=== PATIENT | male | born 1955 | race African-American/Black ===

== ENCOUNTER 2019-01-13 23:32 | Inpatient (IN) | payer BC, SELFPAY ==
[~2019-01-13 23:32] MED LIST: ISOVUE-370 76%-LOCM 1 ML ONE
[2019-01-13] MEDS ORDERED: Ondansetron PF 4 MG/2 ML Vial ONE (23:38)
[2019-01-13] MEDS ORDERED: Fentanyl 100 MCG/2 ML VIAL ONE (23:38)
[2019-01-13] MEDS ORDERED: Tranexamic Acid 1,000 MG/10 ML VIAL ONE (23:42)
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
[2019-01-14] LABS: Hemoglobin 11.9 g/dL (14.0-18.0); Mean Corpuscular HGB CONC 32.2 g/dL (32.0-36.0); Mean Corpuscular Hemoglobin 30.1 pg (27.0-31.0); Mean Corpuscular Volume 93.6 fL (78.0-98.0); Mean Platelet Volume 7.9 fL (7.4-10.4); Platelet Count 287 thou/uL (130-400); RBC Distribution Width 12.8 % (11.5-14.5); Red Blood Cell (RBC) Count 3.97 mill/uL (4.70-6.10); White Blood Cell (WBC) Count 8.6 thou/uL (4.8-10.8)
[2019-01-14 00:06] LABS: Prothrombin Time 13.6 SEC (12.0-14.7)
[2019-01-14] MEDS ORDERED: Promethazine HCl 25 MG/ML VIAL ONE (00:10)
[2019-01-14 00:11] LABS: PTT 19.5 SEC (22.9-36.1)
[2019-01-14] MEDS ORDERED: Succinylcholine Chloride 20 MG/ML 10 ml SYRINGE FS ONE (00:12)
[2019-01-14] MEDS ORDERED: Rocuronium Bromide 10 MG/ML (10ML VIAL) ONE ×2 (00:12→02:51)
[2019-01-14 00:13] LABS: ALT (SGPT) 16 U/L (8-55); AST (SGOT) 23 U/L (5-34); Albumin 3.7 g/dL (3.4-4.8); Alkaline Phosphatase 68 U/L (40-150); Anion Gap 18 mmol/L (10-20); BUN (Urea Nitrogen) 19 mg/dL (8.4-25.7); Bilirubin, Total 0.2 mg/dL (0.2-1.2); Calc. Creatinine Clearance 0 mL/min (70-130); Calcium 8.6 mg/dL (7.8-10.44); Carbon Dioxide 21 mmol/L (23-31); Chloride 105 mmol/L (98-107); Estimated GFR-MDRD 44; Globulin 2.9 g/dL (2.4-3.5); Glucose 134 mg/dL (80-115); Potassium 3.4 mmol/L (3.5-5.1); Protein, Total 6.6 g/dL (5.8-8.1); Sodium 141 mmol/L (136-145)
[2019-01-14 00:14] LABS: Lymphocytes 47 % (21-51); MDiff Complete? YES; Monocytes 5 % (0-10); Neutrophil 45 % (42-75); Reactive Lymphocytes 3 % (0-10)
[2019-01-14] MEDS ORDERED: fentaNYL Citrate/PF 2,000 MCG in Sodium Chloride 0.9% 60 ML IV SCH ×2 (00:14→01:31)
[2019-01-14] MEDS ORDERED: KETAMINE 100 MG/ML (5ML VIAL) ONE (00:15)
[2019-01-14] MEDS ORDERED: Lidocaine 1% w/Epinephrine 1:100K 20 ML VIAL ONE (00:18)
[2019-01-14] MEDS ORDERED: Adacel (T-DAP) 0.5 ML SYRINGE ONE (00:30)
[2019-01-14] MEDS ORDERED: Propofol 1,000 MG/100 ML VIAL IV ONE (00:37)
[2019-01-14 01:14] LABS: Actual Bicarbonate (HCO3a) 21.1 mEq/L (22-28); Analyzer IN Cardio ER; CO2 Tension 34.5 mmHg (35.0-45.0); Calcium, Ionized 1.06 mmol/L (1.12-1.30); Carboxyhemoglobin (COHb) 0.6 gm% (0.0-3.0); Hemoglobin (Hb) 11.8 g/dL (14.0-18.0); O2 Tension (PaO2) 74.3 mmHg (> 80.0)
[2019-01-14 01:18] LABS: ALV-art Gradient 167.775 (0-20); Puncture Site LBA
[2019-01-14 01:19] LABS: Acetaminophen Less than 6.0 mcg/mL (10.0-30.0); Alcohol 176 mg/dL (Less than 10); Salicylate Less than 8.0 mg/dL (15.0-30.0)
[2019-01-14 01:29] LABS: Bilirubin Negative (Negative); Blood, Urine Negative (Negative); Clarity CLEAR (Clear); Glucose, Urine (Dipstick) Negative (Negative); Leukocyte Negative (Negative); Nitrite Negative (Negative); Protein, Urine (Dipstick) Trace mg/dL (Neg-Trace); Urobilinogen 0.2 mg/dL (0.2-1.0)
[2019-01-14] MEDS ORDERED: Propofol 1,000 MG/100 ML VIAL IV PRN ×2 (01:31→03:56)
[2019-01-14] MEDS ORDERED: Propofol BOLUS 1,000 MG/100 ML VIAL IV PRN ×2 (01:31→03:56)
[2019-01-14] MEDS ORDERED: Morphine 2 MG/ML SYRINGE SLOW IVP PRN ×2 (01:31→15:34)
[2019-01-14] MEDS ORDERED: Lorazepam 2 MG/ML VIAL SLOW IVP PRN (01:31)
[2019-01-14] MEDS ORDERED: Fentanyl BOLUS 250 ML IVPB PRN (01:31)
[2019-01-14] MEDS ORDERED: Fentanyl CADD 250 ML IVPB SCH (01:31)
[2019-01-14] MEDS ORDERED: DISCONTINUE PREVIOUS NARCOTIC PAIN MEDICATIONS AND BENZODIAZEPINES FS SCH (01:31)
[2019-01-14 01:39] LABS: Amphetamine Detected (NotDetected); Barbiturates Screen Not Detected (NotDetected); Benzodiazepine Screen Not Detected (NotDetected); Cocaine Metabolite Screen Detected (NotDetected); Medtox Control Line Valid? VALID (VALID); Medtox Reader # READER 4; Methadone Not Detected (NotDetected); Methamphetamine Detected (NotDetected); Opiate Screen Not Detected (NotDetected); Oxycodone Screen Not Detected (NotDetected); Phencyclidine (PCP) Not Detected (NotDetected); THC/Cannabinoid Screen Not Detected (NotDetected); Tricyclic Screen Not Detected (NotDetected)
[2019-01-14] MEDS ORDERED: hydrALAZINE 20 MG/ML VIAL SLOW IVP PRN (03:46)
[2019-01-14] MEDS ORDERED: HumaLOG 300 UNITS/3 ML VIAL SC PRN (03:46)
[2019-01-14] MEDS ORDERED: Dextrose 50% Abboject 50 ML SYRINGE SLOW IVP PRN (03:46)
[2019-01-14] MEDS ORDERED: Dextrose 5% in Water 1,000 ML IV PRN (03:46)
[2019-01-14] MEDS ORDERED: Ondansetron PF 4 MG/2 ML Vial IVP PRN (03:46)
[2019-01-14 04:04] LABS: Magnesium 2.5 mg/dL (1.6-2.6); Phosphorus 2.9 mg/dL (2.3-4.7)
[2019-01-14 04:09] VITALS: BMI 36.1
[2019-01-14] MEDS: Sodium Chloride 0.9% 1,000 ML IV SCH ×4 (04:20→17:33)
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
[2019-01-14] MEDS: Famotidine/PF 20 mg/2ml Vial SLOW IVP SCH ×2 (08:25→20:29)
--- NOTE | 2019-01-14 08:48 | RAD ---
CHEST 1 VIEW: Date: 01/14/19 HISTORY: Chest pain. Pneumothorax. COMPARISON: CT exam from earlier on the same date. FINDINGS: Patient is rotated rightward. Pulmonary vasculature is now engorged. Large caliber left thoracostomy tube is in place, directed towards the apex. Pneumothorax not evident on this portable supine exam. L eft chest wall gas is apparent. Endotracheal catheter tip approaches the indira. Nasogastric tube descends to the abdomen. Patchy are as of parenchymal opacity are present throughout each lung, most pronounced at the left upper lobe wh ere infiltrate was less prominent on recent CT. IMPRESSION: 1. Endotracheal catheter tip approaches the indira and should probably be withdrawn 2-3 cm for jairon r positioning. 2. Left thoracostomy tube in place with evacuation of the left pneumothorax. 3. Left upper lobe infiltrate has progressed. POS: [facility]
[2019-01-14 10:21] LABS: #Basophils 0.1 thou/uL (0.0-0.2); #Eosinphils 0.1 thou/uL (0.0-0.7); #Lymphocytes 2.1 thou/uL (1.20-3.40); #Monocytes 0.7 thou/uL (0.11-0.59); #Neutrophils 10.8 thou/uL (1.40-6.50); %Basophils 0.6 % (0.0-1.0); %Eosinophils 0.6 % (0.0-10.0); %Lymphocytes 15.4 % (21.0-51.0); %Monocytes 5.2 % (0.0-10.0); %Neutrophils 78.2 % (42.0-75.0); Hemoglobin 11.6 g/dL (14.0-18.0); Mean Corpuscular HGB CONC 32.9 g/dL (32.0-36.0); Mean Corpuscular Hemoglobin 30.3 pg (27.0-31.0); Mean Corpuscular Volume 92.2 fL (78.0-98.0); Mean Platelet Volume 7.7 fL (7.4-10.4); Platelet Count 234 thou/uL (130-400); RBC Distribution Width 13.3 % (11.5-14.5); Red Blood Cell (RBC) Count 3.82 mill/uL (4.70-6.10); White Blood Cell (WBC) Count 13.8 thou/uL (4.8-10.8)
[2019-01-14 10:35] LABS: Lactic Acid 1.3 mmol/L (0.5-2.2)
[2019-01-14 10:39] LABS: Anion Gap 13 mmol/L (10-20); BUN (Urea Nitrogen) 15 mg/dL (8.4-25.7); Calc. Creatinine Clearance 105 mL/min (70-130); Calcium 7.8 mg/dL (7.8-10.44); Carbon Dioxide 23 mmol/L (23-31); Chloride 111 mmol/L (98-107); Estimated GFR-MDRD 78; Glucose 98 mg/dL (80-115); Magnesium 1.7 mg/dL (1.6-2.6); Phosphorus 3.1 mg/dL (2.3-4.7); Potassium 3.7 mmol/L (3.5-5.1); Sodium 143 mmol/L (136-145)
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
[2019-01-14] MEDS: Acetaminophen 1,000 MG in Premix Bag 1 BAG IVPB SCH ×2 (14:25→20:30)
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
[2019-01-14] MEDS ORDERED: traMADol HCl 50 MG TAB PO PRN ×2 (15:09)
[2019-01-14] MEDS ORDERED: Cyclobenzaprine 10 MG TAB PO PRN (15:09)
[2019-01-14] MEDS ORDERED: Ibuprofen 800 MG TAB PO SCH (15:45)
[2019-01-14] MEDS: Ibuprofen 800 MG TAB PO SCH (20:29)
[2019-01-14] MEDS: Senokot S 8.6-50 MG TAB PO SCH (20:29)
[2019-01-14] MEDS: Gabapentin 100 MG CAP PO SCH (20:29)
[2019-01-15] MEDS: Acetaminophen 1,000 MG in Premix Bag 1 BAG IVPB SCH ×2 (01:21→10:36)
[2019-01-15] MEDS: Sodium Chloride 0.9% 1,000 ML IV SCH ×2 (01:35→06:52)
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
[2019-01-15] MEDS: Ibuprofen 800 MG TAB PO SCH ×3 (06:53→20:55)
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
[2019-01-15 08:34] LABS: #Basophils 0.1 thou/uL (0.0-0.2); #Eosinphils 0.4 thou/uL (0.0-0.7); #Lymphocytes 1.9 thou/uL (1.20-3.40); #Monocytes 0.6 thou/uL (0.11-0.59); #Neutrophils 6.5 thou/uL (1.40-6.50); %Basophils 0.9 % (0.0-1.0); %Eosinophils 3.9 % (0.0-10.0); %Lymphocytes 20.1 % (21.0-51.0); %Neutrophils 69.1 % (42.0-75.0); Hemoglobin 10.9 g/dL (14.0-18.0); Mean Corpuscular HGB CONC 31.9 g/dL (32.0-36.0); Mean Corpuscular Hemoglobin 29.5 pg (27.0-31.0); Mean Corpuscular Volume 92.2 fL (78.0-98.0); Platelet Count 217 thou/uL (130-400); RBC Distribution Width 13.2 % (11.5-14.5); Red Blood Cell (RBC) Count 3.69 mill/uL (4.70-6.10); White Blood Cell (WBC) Count 9.4 thou/uL (4.8-10.8)
--- NOTE | 2019-01-15 08:42 | RAD ---
SINGLE VIEW CHEST: Date: 01/15/19 COMPARISON: 01/14/19. HISTORY: Left-sided chest tube for pneumothorax. FINDINGS: Single view of the chest shows a normal sized cardiomediastinal silhouette. There is a left-sided miah st tube without pneumothorax. Opacity is seen in the left thorax, which may represent an infiltrate o r pulmonary contusion. IMPRESSION: Stable exam. POS: [facility]
[2019-01-15 08:55] LABS: Anion Gap 11 mmol/L (10-20); BUN (Urea Nitrogen) 10 mg/dL (8.4-25.7); Calc. Creatinine Clearance 129 mL/min (70-130); Calcium 7.9 mg/dL (7.8-10.44); Carbon Dioxide 23 mmol/L (23-31); Chloride 109 mmol/L (98-107); Estimated GFR-MDRD Greater than 90; Glucose 126 mg/dL (80-115); Magnesium 1.7 mg/dL (1.6-2.6); Potassium 3.4 mmol/L (3.5-5.1); Sodium 140 mmol/L (136-145)
[2019-01-15] MEDS ORDERED: Losartan 25 MG TAB PO SCH (09:00)
[2019-01-15 09:06] LABS: Phosphorus 1.9 mg/dL (2.3-4.7)
[2019-01-15] MEDS: Losartan 25 MG TAB PO SCH (09:22)
[2019-01-15] MEDS: Polyethylene Glycol 3350 17 GM Packet PO SCH (09:23)
[2019-01-15] MEDS: Hydrochlorothiazide 25 MG TAB PO SCH (09:24)
[2019-01-15] MEDS: Senokot S 8.6-50 MG TAB PO SCH ×2 (09:24→20:55)
[2019-01-15] MEDS: Allopurinol 300 MG TAB PO SCH (09:25)
[2019-01-15] MEDS: Enoxaparin Sodium 40 MG/0.4 ML SYRINGE SC SCH (09:25)
[2019-01-15] MEDS: Gabapentin 100 MG CAP PO SCH ×3 (09:26→20:55)
[2019-01-15] MEDS: Famotidine/PF 20 mg/2ml Vial SLOW IVP SCH (10:36)
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
[2019-01-15] MEDS ORDERED: Potassium Phosphate 30 MMOL in Sodium Chloride 0.9% 500 ML IVPB SCH (12:00)
[2019-01-15] MEDS ORDERED: Magnesium 2 GM/50 ML 2 GM in Premix Bag 1 BAG IVPB SCH (12:00)
[2019-01-15] MEDS: Acetaminophen 500 MG TAB PO SCH ×2 (12:11→17:26)
[2019-01-16] MEDS: Acetaminophen 500 MG TAB PO SCH ×3 (00:24→14:14)
[2019-01-16] MEDS: Ibuprofen 800 MG TAB PO SCH ×2 (06:04→14:14)
[2019-01-16 07:21] LABS: #Basophils 0.1 thou/uL (0.0-0.2); #Eosinphils 0.4 thou/uL (0.0-0.7); #Lymphocytes 1.8 thou/uL (1.20-3.40); #Monocytes 0.5 thou/uL (0.11-0.59); #Neutrophils 5.5 thou/uL (1.40-6.50); %Basophils 1.1 % (0.0-1.0); %Monocytes 5.5 % (0.0-10.0); %Neutrophils 66.4 % (42.0-75.0); Hemoglobin 11.2 g/dL (14.0-18.0); Mean Corpuscular HGB CONC 32.4 g/dL (32.0-36.0); Mean Corpuscular Hemoglobin 29.8 pg (27.0-31.0); Mean Corpuscular Volume 91.9 fL (78.0-98.0); Mean Platelet Volume 8.5 fL (7.4-10.4); Platelet Count 222 thou/uL (130-400); RBC Distribution Width 13.1 % (11.5-14.5); Red Blood Cell (RBC) Count 3.74 mill/uL (4.70-6.10); White Blood Cell (WBC) Count 8.2 thou/uL (4.8-10.8)
--- NOTE | 2019-01-16 08:24 | RAD ---
CHEST 1 VIEW: HISTORY: Chest tube. Pneumothorax. Followup. COMPARISON: 01/15/2019. FINDINGS: Cardiac silhouette is magnified and enlarged. Pulmonary vasculature is upper limits of normal, sligh tly improved compared to the prior study. Left thoracostomy tube remains in place. Parenchymal opac ity immediately adjacent to the chest tube has decreased somewhat. A small amount of left chest wall gas. No residual pneumothorax. Mediastinum is midline. IMPRESSION: 1. Improved aeration of the left lung adjacent to the thoracostomy tube. 2. Interval decrease in pulmonary vascular congestion. POS: [facility]
[2019-01-16] MEDS: Hydrochlorothiazide 25 MG TAB PO SCH (09:08)
[2019-01-16] MEDS: Losartan 25 MG TAB PO SCH (09:08)
[2019-01-16] MEDS: Gabapentin 100 MG CAP PO SCH ×2 (09:09→14:14)
[2019-01-16] MEDS: Senokot S 8.6-50 MG TAB PO SCH (09:09)
[2019-01-16] MEDS: Polyethylene Glycol 3350 17 GM Packet PO SCH (09:09)
[2019-01-16] MEDS: Allopurinol 300 MG TAB PO SCH (09:09)
[2019-01-16] MEDS: Enoxaparin Sodium 40 MG/0.4 ML SYRINGE SC SCH (09:09)
[2019-01-16 09:16] LABS: Chloride 107 mmol/L (98-107); Magnesium 2.4 mg/dL (1.6-2.6); Potassium 4.3 mmol/L (3.5-5.1); Sodium 139 mmol/L (136-145)
[2019-01-16 09:17] LABS: Calcium 8.8 mg/dL (7.8-10.44); Glucose 106 mg/dL (80-115)
[2019-01-16 09:19] LABS: Anion Gap 11 mmol/L (10-20); Carbon Dioxide 25 mmol/L (23-31)
[2019-01-16 09:21] LABS: BUN (Urea Nitrogen) 9 mg/dL (8.4-25.7); Calc. Creatinine Clearance 128 mL/min (70-130); Estimated GFR-MDRD Greater than 90
[2019-01-16 09:24] LABS: Phosphorus 2.7 mg/dL (2.3-4.7)
[2019-01-16] MEDS ORDERED: traMADol HCl 50 MG TAB PO PRN (10:52)
[2019-01-16 15:40] VITALS: BP 117/77; TEMP 98.1
--- NOTE | 2019-01-16 16:26 | RAD ---
CHEST ONE VIEW: 01/16/19 HISTORY: Chest tube removal. COMPARISON: Radiograph same day. FINDINGS: There is some atelectatic change in the left mid lung. Interval removal of the thoracostomy tube. No significant left sided pneumothorax is appreciated. IMPRESSION: No significant residual pneumothorax. POS: [facility]
== END 2019-01-16 17:00 | disposition home or self-care (01) | DRG 200 ==
LOC: EDBD 23:32 → ERS 23:32 → CCU 01-14 01:19 → SURG B 01-14 23:45
PROVIDERS: ADMIT Surgery; ATTEND Surgery
PROC: 0W9B00Z Drainage of Left Pleural Cavity with Drainage Device, Open Approach (ICD-10-PCS; principal; 2019-01-14)
PROC: 30233N1 Transfusion of Nonautologous Red Blood Cells into Peripheral Vein, Percutaneous Approach (ICD-10-PCS; 2019-01-14)
DX: S27.2XXA Traumatic hemopneumothorax, initial encounter (principal); S21.112A Laceration without foreign body of left front wall of thorax without penetration into thoracic cavity, initial encounter; I10 Essential (primary) hypertension; M10.9 Gout, unspecified; F10.129 Alcohol abuse with intoxication, unspecified; F15.10 Other stimulant abuse, uncomplicated; E87.6 Hypokalemia; E83.39 Other disorders of phosphorus metabolism; E83.42 Hypomagnesemia; W45.8XXA Other foreign body or object entering through skin, initial encounter
CPT/HCPCS: 36415; 36416; 36430; 70450; 71045; 71260; 72125; 80048; 80053; 80306; 80307; 81003; 82805; 83605; 83735; 84100; 84484; 85025; 85610; 85730; 86850; 86900; 86901; 90715; 93005; 94002; G0390; J0131; J1650; J2001; J2405; J2550; J2704; J3010; J3475; J7050; P9016; Q9966; S0028